=== PATIENT | female | born 1990 | race American Indian/Alaskan Native ===

== ENCOUNTER 2018-03-04 11:54 | Emergency (ER) | payer MEDICAID ==
[2018-03-04] MEDS ORDERED: ZOFRAN IV ONE (12:35)
[2018-03-04] MEDS ORDERED: NACL 0.9% 1000 ML 1,000 ML IV ONE (12:35)
--- NOTE | 2018-03-04 12:35 | Emergency Department Report ---
Vomiting/Diarrhea - HPI Chief Complaint: Nausea/Vomiting/Diarrhea Stated Complaint: STOMACH PAIN/VOMITING Duration: 1 week Severity: moderate Nausea/Vomiting Severity: Moderate Diarrhea Severity: Mild Pain Location: Generalized Pain Severity: Mild Symptoms: Yes Watery Diarrhea, Yes Contacts w/ Similar Symptoms (co workers), No Bloody diarrhea, No Fever, No Able to Tolerate Fluids, No Recent Unusual Foods, No Recent Untreated Water, No Recent use of Antibiotics, No Family w/ Similar Symptoms, No Rash, No Hematuria, No Recent URI Symptoms Other History: This is a 28-year-old female who presents with nausea, vomiting, and abdominal pain for one week. Past medical history of asthma. Patient reports vomiting 2-3 times per day and unable to keep anything down. Reported dizziness this morning which prompted further evaluation. States she missed 2 days for tooth symptoms. Symptoms are improved by relaxation or immobility. Last menstrual period 01/25/2018, A1. She denies fever, cough, rhinorrhea, shortness of breath, myalgia, chest pain, frequency, urgency, or dysuria. ED Review of Systems ROS: Stated complaint: STOMACH PAIN/VOMITING Other details as noted in HPI Constitutional: denies: chills, fever Respiratory: denies: cough, shortness of breath, wheezing Cardiovascular: denies: chest pain, palpitations Gastrointestinal: abdominal pain, nausea, vomiting. denies: diarrhea Neurological: denies: headache, weakness, paresthesias Psychiatric: denies: anxiety, depression ED Past Medical Hx - Past Medical History Hx Hypertension: No Hx CVA: No Hx Heart Attack/AMI: No Hx Congestive Heart Failure: No Hx Diabetes: No Hx Deep Vein Thrombosis: No Hx Pulmonary Embolism: No Hx GERD: No Hx Liver Disease: No Hx Renal Disease: No Hx Sickle Cell Disease: No Hx Arthritis: No Hx Headaches / Migraines: No Hx Seizures: No Hx Kidney Stones: No Hx Psychiatric Treatment: No Hx Asthma: Yes Hx COPD: No Hx Tuberculosis: No Hx Dementia: No Hx HIV: No - Surgical History Past Surgical History?: No - Social History Smoking Status: Never Smoker Substance Use Type: None - Medications Home Medications: Home Medications Medication Instructions Recorded Confirmed Last Taken Type Doxycycline [Vibramycin CAP] 100 mg PO BID #14 capsule 08/19/13 Unknown Rx HYDROcodone/ACETAMINOPHEN [Olive 1 each PO Q6H PRN 08/19/13 08/19/1308/19/14 History 5/325 Tablet] Ibuprofen [Motrin] 800 mg PO Q8H PRN #30 tablet 08/19/13 Unknown Rx Methylergonovine [Methergine] 0.2 mg PO Q8HR #6 tablet 08/19/13 Unknown Rx Promethazine [Phenergan] 25 mg PO Q6H PRN 08/19/13 08/19/13 Unknown History Ibuprofen [Motrin 600 MG tab] 600 mg PO Q8H PRN #20 tablet 01/01/16 Unknown Rx traMADol [Ultram 50 MG tab] 50 mg PO Q6HR PRN #10 tablet 01/01/16 Unknown Rx Ondansetron [Zofran Odt] 4 mg PO Q8HR PRN #20 tab.rapdis 03/04/18 Unknown Rx 21/Iron Fu/Folic Acid 1 each PO DAILY #30 tablet 03/04/18 Unknown Rx [ Complete Caplet] Vomiting Diarrhea Exam - Exam General: Vital signs noted. No distress. Alert and acting appropriately. HEENT: Yes Pharyngeal Erythema (erythematous posterior pharynx, uvula midline), Yes Moist Mucous Membranes, No Pharyngeal Exudates, No Rhinorrhea, No Conjuctival Injection, No Frontal Tenderness, No Maxillary Tenderness Neck: No Adenopathy, No Rigidity Lungs: Yes Clear Lung Sounds, Yes Good Air Exchange, No Wheezes, No Stridor, No Cough, No Nasal Flaring, No Retractions, No Use of Accessory Muscles Heart exam: Regular: Yes, Murmur: No, Tachycardia: No Abdomen: Tenderness: Yes (right upper quadrant), Peritoneal Signs: No, Distention: No, Hyperactive Bowel sounds: No Skin exam: Rash: No, Edema: No, Normal turgor: Yes Neurologic: Alert and oriented, no deficits. Musculoskeletal: Unremarkable. ED Course Vital Signs 03/04/18 11:58 Temperature 98.8 F Pulse Rate 66 Respiratory 16 Rate Blood Pressure 107/70 O2 Sat by Pulse 100 Oximetry ED Medical Decision Making - Lab Data Result diagrams: 03/04/18 12:39 03/04/18 12:39 Lab Results 03/04/18 03/04/18 03/04/18 Range/Units 12:39 12:39 12:44 WBC 6.5 (4.5-11.0) K/mm3 RBC 4.08 (3.65-5.03) M/mm3 Hgb 12.2 (10.1-14.3) gm/dl Hct 35.8 (30.3-42.9) % MCV 88 (79-97) fl MCH 30 (28-32) pg MCHC 34 (30-34) % RDW 13.8 (13.2-15.2) % Plt Count 249 (140-440) K/mm3 Lymph % (Auto) 13.2 L (13.4-35.0) % [place] % (Auto) 6.2 (0.0-7.3) % Eos % (Auto) 0.6 (0.0-4.3) % Baso % (Auto) 1.3 (0.0-1.8) % Lymph # 0.9 L (1.2-5.4) K/mm3 [place] # 0.4 (0.0-0.8) K/mm3 Eos # 0.0 (0.0-0.4) K/mm3 Baso # 0.1 (0.0-0.1) K/mm3 Seg Neutrophils % 78.7 H (40.0-70.0) % Seg Neutrophils # 5.1 (1.8-7.7) K/mm3 Sodium 136 L (137-145) mmol/L Potassium 4.2 (3.6-5.0) mmol/L Chloride 103.5 (98-107) mmol/L Carbon Dioxide 24 (22-30) mmol/L Anion Gap 13 mmol/L BUN 4 L (7-17) mg/dL Creatinine 0.6 L (0.7-1.2) mg/dL Estimated GFR > 60 ml/min BUN/Creatinine Ratio 7 % Glucose 81 (65-100) mg/dL Calcium 9.2 (8.4-10.2) mg/dL Total Bilirubin 0.50 (0.1-1.2) mg/dL AST 15 (5-40) units/L ALT 7 (7-56) units/L Alkaline Phosphatase 46 (35-129) units/L Total Protein 7.3 (6.3-8.2) g/dL Albumin 4.2 (3.9-5) g/dL Albumin/Globulin Ratio 1.4 % Lipase 25 (13-60) units/L HCG, Quant (0-4) mIU/mL Urine Color Yellow (Yellow) Urine Turbidity Clear (Clear) Urine pH 7.0 (5.0-7.0) Ur Specific [place] 1.005 (1.003-1.030) Urine Protein <15 mg/dl (Negative) mg/dL Urine Glucose (UA) Neg (Negative) mg/dL Urine Ketones Neg (Negative) mg/dL Urine Blood Neg (Negative) Urine Nitrite Neg (Negative) Urine Bilirubin Neg (Negative) Urine Urobilinogen < 2.0 (<2.0) mg/dL Ur Leukocyte Esterase Neg (Negative) Urine WBC (Auto) 1.0 (0.0-6.0) /HPF Urine RBC (Auto) 1.0 (0.0-6.0) /HPF U Epithel Cells (Auto) 7.0 (0-13.0) /HPF Urine Bacteria (Auto) 1+ (Negative) /HPF Urine Mucus Few /HPF Urine HCG, Qual Positive A (Negative) 03/04/18 Range/Units 13:57 WBC (4.5-11.0) K/mm3 RBC (3.65-5.03) M/mm3 Hgb (10.1-14.3) gm/dl Hct (30.3-42.9) % MCV (79-97) fl MCH (28-32) pg MCHC (30-34) % RDW (13.2-15.2) % Plt Count (140-440) K/mm3 Lymph % (Auto) (13.4-35.0) % [place] % (Auto) (0.0-7.3) % Eos % (Auto) (0.0-4.3) % Baso % (Auto) (0.0-1.8) % Lymph # (1.2-5.4) K/mm3 [place] # (0.0-0.8) K/mm3 Eos # (0.0-0.4) K/mm3 Baso # (0.0-0.1) K/mm3 Seg Neutrophils % (40.0-70.0) % Seg Neutrophils # (1.8-7.7) K/mm3 Sodium (137-145) mmol/L Potassium (3.6-5.0) mmol/L Chloride (98-107) mmol/L Carbon Dioxide (22-30) mmol/L Anion Gap mmol/L BUN (7-17) mg/dL Creatinine (0.7-1.2) mg/dL Estimated GFR ml/min BUN/Creatinine Ratio % Glucose (65-100) mg/dL Calcium (8.4-10.2) mg/dL Total Bilirubin (0.1-1.2) mg/dL AST (5-40) units/L ALT (7-56) units/L Alkaline Phosphatase (35-129) units/L Total Protein (6.3-8.2) g/dL Albumin (3.9-5) g/dL Albumin/Globulin Ratio % Lipase (13-60) units/L HCG, Quant [id number] H (0-4) mIU/mL Urine Color (Yellow) Urine Turbidity (Clear) Urine pH (5.0-7.0) Ur Specific [place] (1.003-1.030) Urine Protein (Negative) mg/dL Urine Glucose (UA) (Negative) mg/dL Urine Ketones (Negative) mg/dL Urine Blood (Negative) Urine Nitrite (Negative) Urine Bilirubin (Negative) Urine Urobilinogen (<2.0) mg/dL Ur Leukocyte Esterase (Negative) Urine WBC (Auto) (0.0-6.0) /HPF Urine RBC (Auto) (0.0-6.0) /HPF U Epithel Cells (Auto) (0-13.0) /HPF Urine Bacteria (Auto) (Negative) /HPF Urine Mucus /HPF Urine HCG, Qual (Negative) - Radiology Data Radiology results: report reviewed SFINAL REPORT PROCEDURE: US OB TRANSVAGINAL TECHNIQUE: Real-time transvaginal sonography of the uterus, placenta, amniotic fluid, adnexa, and fetus was performed with image documentation. Measurements were obtained to determine age/size. M-mode Doppler was used to document heartbeat. CPT 84735 HISTORY: positive , pelvic pain COMPARISON: Transvaginal OB ultrasound also performed today. FINDINGS: The report for this exam was generated using images from both the transabdominal and the transvaginal OB ultrasound both of which were performed today. There is a single living intrauterine gestation visualized currently with a heart rate of 166 beats per minute. Shape of the gestational sac appears normal. No evidence of subchorionic hemorrhage. Yolk sac and pole are visualized. [place]-rump length measurement is 17.5 millimeters corresponding to an age of 8 weeks 2 days. Fetus currently too small to assess anatomy. No gross abnormality is visualized. There is a isoechoic mass in the anterior myometrium of the body of the uterus consistent with a fibroid. This measures 4.1 x 4.1 x 5.4 centimeter. Fibroid is suspected. Uterus is otherwise unremarkable. Right ovary showed no abnormality measuring 3.3 x 2.0 x 2.5 centimeter. Left ovary measures 2.6 x 1.8 x 2.2 centimeters. Small cystic areas seen in the left ovary with diffuse increased echoes suggesting corpus luteum cyst of . This measures 1.6 x 1.5 x 1.2 centimeter. Left ovary is otherwise unremarkable. No other abnormalities are seen per IMPRESSION: Single living intrauterine gestation visualized. By crown-rump length measurement estimated age is 8 weeks 2 days[address] the EDC 10/12/2018 +/-0.5 weeks. Fetus currently too small to assess anatomy. Consider follow-up anatomic screen at 18-20 weeks. No evidence of subchorionic hemorrhage. Isoechoic nodule anterior myometrium consistent with a fairly large uterine mural fibroid. Small complex cystic structure left ovary suggesting corpus luteum cyst of . No other abnormalities are seen. IMPRESSION: - Medical Decision Making This is a 28 y.o. female presents with nausea, vomiting, and pelvic pain for 1 week. Patient was examined by me. Vitals are normal and patient is in no acute distress. Obtained labs and OB ultrasound pending. IV site. Given normal saline 1 L bolus, Zofran 4 mg IV, and reglan 10 mg IV. Quant [id number] all other labs unremarkable. Confirmed , complete. Hypemesis, start Zofran. Single live intrauterine gestation visualized. Estimated a 8 weeks 2 days. Referral to [facility]. Patient discharged home stable. Critical care attestation.: If time is entered above; I have spent that time in minutes in the direct care of this critically ill patient, excluding procedure time. ED Disposition Clinical Impression: Nausea and vomiting during , Incidental confirmed, Hyperemesis Disposition: - TO HOME OR SELFCARE Is pt being admited?: No Does the pt Need Aspirin: No Condition: Stable Instructions: (ED), Hyperemesis Gravidarum (ED) Additional Instructions: Start taking vitamins once daily. Follow-up with an [facility] for continued care. Prescriptions: Ondansetron [Zofran Odt] 4 mg PO Q8HR PRN #20 tab.rapdis PRN Reason: Nausea And Vomiting 21/Iron Fu/Folic Acid [ Complete Caplet] 1 each PO DAILY #30 tablet Referrals: ASYA PAZ [Primary Care Provider] - 3-5 Days [facility] [Provider Group] - 3-5 Days [facility] [Provider Group] - 3-5 Days [facility] [Provider Group] - 3-5 Days Forms: Work/School Release Form(ED)
[2018-03-04 13:03] LABS: Bacteria,Urine 1+ /HPF (Negative); Bilirubin,Urine NEG (Negative); Blood,Urine NEG (Negative); Color,Urine Yellow (Yellow); Mucus,Urine FEW /HPF; Protein,Urine <15 mg/dL mg/dL (Negative); Urobilinogen,Urine < 2.0 mg/dL (<2.0)
[2018-03-04 13:04] LABS: Basophils # (Auto) 0.1 K/mm3 (0.0-0.1); Basophils % (Auto) 1.3 % (0.0-1.8); Eosinophils % (Auto) 0.6 % (0.0-4.3); Hematocrit 35.8 % (30.3-42.9); Hemoglobin 12.2 gm/dl (10.1-14.3); Lymphocytes # (Auto) 0.9 K/mm3 (1.2-5.4); Lymphocytes % (Auto) 13.2 % (13.4-35.0); Mean Corpuscular HGB Conc 34 % (30-34); Mean Corpuscular Volume 88 fl (79-97); Monocytes # (Auto) 0.4 K/mm3 (0.0-0.8); Monocytes % (Auto) 6.2 % (0.0-7.3); Platelet Count 249 K/mm3 (140-440); Red Blood Count 4.08 M/mm3 (3.65-5.03); Red Cell Distribution Width 13.8 % (13.2-15.2)
[2018-03-04 13:05] LABS: HCG Qualitative,Urine Positive (Negative)
[2018-03-04] MEDS ORDERED: REGLAN IV ONE (13:40)
[2018-03-04 14:06] LABS: Alanine Aminotransferase 7 units/L (7-56); BUN/Creatinine Ratio 7; Blood Urea Nitrogen 4 mg/dL (7-17); Calcium 9.2 mg/dL (8.4-10.2); Hemolysis Index 58
[2018-03-04 14:13] LABS: Albumin 4.2 g/dL (3.9-5)
--- NOTE | 2018-03-04 18:56 | Ultrasound Report ---
FINAL REPORT PROCEDURE: US OB <= 14 WEEKS FETUS TECHNIQUE: Real-time transabdominal sonography of the uterus, placenta, amniotic fluid, adnexa, and fetus was performed with image documentation. Measurements were obtained to determine age/size. M-mode Doppler was used to document heartbeat. CPT 75726 HISTORY: positive , pelvic pain COMPARISON: Transvaginal OB ultrasound also performed today. FINDINGS: The report for this exam was generated using images from both the transabdominal and the transvaginal OB ultrasound both of which were performed today. There is a single living intrauterine gestation vi sualized currently with a heart rate of 166 beats per minute. Shape of the gestational sac appears no rmal. No evidence of subchorionic hemorrhage. Yolk sac and pole are visualized. [place]-rump michela th measurement is 17.5 millimeters corresponding to an age of 8 weeks 2 days. Fetus currently too sma ll to assess anatomy. No gross abnormality is visualized. There is a isoechoic mass in the anterior m yometrium of the body of the uterus consistent with a fibroid. This measures 4.1 x 4.1 x 5.4 [address] er[address] Fibroid is suspected. Uterus is otherwise unremarkable. Right ovary showed no abnormality measuri ng 3.3 x 2.0 x 2.5 centimeter. Left ovary measures 2.6 x 1.8 x 2.2 centimeters. Small cystic areas se en in the left ovary with diffuse increased echoes suggesting corpus luteum cyst of . This m easures 1.6 x 1.5 x 1.2 centimeter. Left ovary is otherwise unremarkable. No other abnormalities are seen per IMPRESSION: Single living intrauterine gestation visualized. By crown-rump length measurement estimated age is 8 weeks 2 days[address] the EDC 10/12/2018 +/-0.5 weeks. Fetus currently too small to assess anatom y. Consider follow-up anatomic screen at 18-20 weeks. No evidence of subchorionic hemorrhage. Isoechoic nodule anterior myometrium consistent with a fairly large uterine mural fibroid. Small complex cystic structure left ovary suggesting corpus luteum cyst of . No other abnormalities are seen.
--- NOTE | 2018-03-04 18:58 | Ultrasound Report ---
FINAL REPORT PROCEDURE: US OB TRANSVAGINAL TECHNIQUE: Real-time transvaginal sonography of the uterus, placenta, amniotic fluid, adnexa, and fe tus was performed with image documentation. Measurements were obtained to determine age/size. M -mode Doppler was used to document heartbeat. CPT 62401 HISTORY: positive , pelvic pain COMPARISON: Transvaginal OB ultrasound also performed today. FINDINGS: The report for this exam was generated using images from both the transabdominal and the transvaginal OB ultrasound both of which were performed today. There is a single living intrauterine gestation vi sualized currently with a heart rate of 166 beats per minute. Shape of the gestational sac appears no rmal. No evidence of subchorionic hemorrhage. Yolk sac and pole are visualized. [place]-rump michela th measurement is 17.5 millimeters corresponding to an age of 8 weeks 2 days. Fetus currently too sma ll to assess anatomy. No gross abnormality is visualized. There is a isoechoic mass in the anterior m yometrium of the body of the uterus consistent with a fibroid. This measures 4.1 x 4.1 x 5.4 centimet er. Fibroid is suspected. Uterus is otherwise unremarkable. Right ovary showed no abnormality measuri ng 3.3 x 2.0 x 2.5 centimeter. Left ovary measures 2.6 x 1.8 x 2.2 centimeters. Small cystic areas se en in the left ovary with diffuse increased echoes suggesting corpus luteum cyst of . This m easures 1.6 x 1.5 x 1.2 centimeter. Left ovary is otherwise unremarkable. No other abnormalities are seen per IMPRESSION: Single living intrauterine gestation visualized. By crown-rump length measurement estimated age is 8 weeks 2 days. This [address] the EDC 10/12/2018 +/-0.5 weeks. Fetus currently too small to assess anatom y. Consider follow-up anatomic screen at 18-20 weeks. No evidence of subchorionic hemorrhage. Isoechoic nodule anterior myometrium consistent with a fairly large uterine mural fibroid. Small complex cystic structure left ovary suggesting corpus luteum cyst of . No other abnormalities are seen. IMPRESSION:
[2018-03-04 19:25] VITALS: BP 116/77
== END 2018-03-04 19:27 | disposition home or self-care (01) ==
LOC: ED 11:54
DX: O26.891 Other specified pregnancy related conditions, first trimester (principal); O21.0 Mild hyperemesis gravidarum; O99.511 Diseases of the respiratory system complicating pregnancy, first trimester; Z3A.08 8 weeks gestation of pregnancy; Z79.899 Other long term (current) drug therapy
CPT/HCPCS: 36415; 76801; 76817; 80053; 81001; 81025; 83690; 84702; 85025; 96361; 96374; 96375; 99284; J2405; J2765; J7030